=== PATIENT | female | born 1945 | race Caucasian/White ===

== ENCOUNTER 2017-12-06 21:01 | Emergency (ER) | payer OTHER ==
[~2017-12-06] VITALS: Ht 167.6 cm; Wt 88.4 kg
[2017-12-06 21:35] LABS: HEMATOCRIT 39.1 % (36.0-46.0); HEMOGLOBIN 13.8 G/DL (11.9-15.5); MCH 32.5 PG (29.0-34.0); MCHC 35.3 G/DL (30.0-36.0); MCV 92.2 FL (83-99); PLATELET COUNT 254 K/uL (156-360); RBC DIS.WIDTH-CV 13.1 % (11.8-14.6); RBC DIS.WIDTH-SD 44.4 % (39-53); RED BLOOD COUNT 4.24 M/uL (3.80-5.20); WHITE BLOOD COUNT 5.8 K/uL (4.1-10.2)
[2017-12-06 21:49] LABS: CHLORIDE 102 mEq/L (99-109); POTASSIUM 3.8 mEq/L (3.7-5.4); SODIUM 140 mEq/L (136-147)
[2017-12-06 21:51] LABS: GLUCOSE 92 mg/dL (70-99)
[2017-12-06 21:55] LABS: CREATININE 1.1 mg/dL (0.6-1.3); GFR ESTIMATE (CALCULATED) 52 mL/min/
[2017-12-06 21:56] LABS: UREA NITROGEN (BUN) 14 mg/dL (9-23)
[2017-12-06 22:03] LABS: TROP-I INTERPRETATION NEGATIVE; TROPONIN-I < 0.01 ng/mL (0.0-0.30)
[2017-12-07 01:00] VITALS: BP 112/52
[2017-12-07 01:08] LABS: TROP-I INTERPRETATION NEGATIVE; TROPONIN-I < 0.01 ng/mL (0.0-0.30)
== END 2017-12-07 01:20 | disposition home or self-care (01) ==
LOC: EME 21:01
PROVIDERS: Emergency Medicine
DX: R07.89 Other chest pain (principal); M79.7 Fibromyalgia; M32.9 Systemic lupus erythematosus, unspecified; L40.50 Arthropathic psoriasis, unspecified; Z87.891 Personal history of nicotine dependence
CPT/HCPCS: 71046; 80048; 84484; 85027; 93005; 99281; 99285